=== PATIENT | female | born 1965 | race Caucasian/White ===

== ENCOUNTER 2019-09-14 14:04 | Day surgery (SDC) | payer BC ==
[2019-09-14] MEDS ORDERED: Marcaine 0.5% SDV 10 ML IJ ONE (14:05)
[2019-09-14] MEDS ORDERED: Depo-Medrol 40 MG/ML IM ONE (14:05)
[2019-09-14] MEDS ORDERED: Xylocaine 1% Vial 30 ML PF IJ ONE (14:05)
--- NOTE | 2019-09-14 16:32 | XRAY ---
9 seconds fluoroscopy time in surgery for greater trochanteric injection of the left hip.
--- NOTE | 2019-09-14 16:32 | XRAY ---
8 seconds fluoroscopy time in surgery for greater trochanteric injection of the right hip.
--- NOTE | 2019-09-17 20:47 | XRAY ---
Indication: Right hip bursa injection. Intraoperative fluoroscopy was provided for 8 seconds. A single digital spot image submitted for interpretation demonstrates the needle tip to be projected over the lateral margin of the greater trochanter. Contrast has been injected through the needle tip which enters the trochanteric bursa. Correlate with intraoperative findings/report.
--- NOTE | 2019-09-17 20:49 | XRAY ---
Indication: Left hip bursa injection. Intraoperative fluoroscopy was provided for a 9 seconds. A single digital spot image submitted for interpretation demonstrates the needle tip projected over the lower lateral margin of the greater trochanter. Contrast has been injected through the needle tip which enters the trochanteric bursa. Correlate with intraoperative findings/report.
== END 2019-09-14 15:25 | disposition home or self-care (01) ==
LOC: SDC-PAIN 14:04
PROVIDERS: ATTEND Psychiatry & Neurology Pain Medicine
DX: M70.62 Trochanteric bursitis, left hip (principal); M70.61 Trochanteric bursitis, right hip; M06.9 Rheumatoid arthritis, unspecified; F41.8 Other specified anxiety disorders; Z79.899 Other long term (current) drug therapy
CPT/HCPCS: 20610; 73501; 77002; J1030; J2001; Q9966

== ENCOUNTER 2024-08-17 11:05 | Day surgery (SDC) | payer BC ==
[2024-08-17] MEDS ORDERED: BUPIVACAINE 0.5% VIAL IJ ONE (11:06)
[2024-08-17] MEDS ORDERED: Depo-Medrol 40 MG/ML IM ONE (11:06)
[2024-08-17] MEDS ORDERED: propofoL IV ONE (13:25)
--- NOTE | 2024-08-17 14:51 | XRAY ---
Indication: Left greater trochanter bursa injection. Intraoperative fluoroscopy provided for 9 seconds. Single digital spot image submitted for interpretation demonstrates needle tip projecting lateral to left greater trochanter. Small amount of contrast injected for needle tip placement. Correlate with intraoperative findings/report.
--- NOTE | 2024-08-17 14:55 | XRAY ---
9 seconds of fluoroscopy was used in surgery for a left hip greater trochanteric bursa injection.
[2024-08-17] MEDS ORDERED: Lactated Ringers 1,000 ML IV ONE (16:11)
== END 2024-08-17 13:57 | disposition home or self-care (01) ==
LOC: SDC-PAIN 11:05
PROVIDERS: ATTEND Psychiatry & Neurology Pain Medicine
DX: M16.12 Unilateral primary osteoarthritis, left hip (principal)
CPT/HCPCS: 20610; 73501; 77002; J2704; Q9966